=== PATIENT | male | born 1960 | race African-American/Black ===

== ENCOUNTER 2017-08-09 12:47 | Emergency (ER) | payer BC ==
[~2017-08-09] VITALS: Ht 198.1 cm; Wt 106.1 kg
[~2017-08-09 12:47] MED LIST: ASPIR-TRIN325 M1 PO; GLUCOPHAGE1000 MG PO; GLUCOPHAGE500 MG PO; Glucophage PO; LANTUS 3 M100 UNITS/ SC; LANTUS 3 M100 UNITS1 SC; MOBIC15 MG PO; NOHOMEMEDS
[2017-08-09 14:40] LABS: HEMATOCRIT 41.6 % (38.0-50.0); HEMOGLOBIN 13.6 G/DL (12.5-16.6); MCH 27.8 PG (29.0-34.0); MCHC 32.7 G/DL (30.0-36.0); MCV 85.1 FL (86-99); PLATELET COUNT 217 K/uL (156-360); RBC DIS.WIDTH-CV 13.6 % (11.8-14.6); RBC DIS.WIDTH-SD 42.5 % (39-53); RED BLOOD COUNT 4.89 M/uL (4.00-5.50); WHITE BLOOD COUNT 5.4 K/uL (4.1-10.2)
[2017-08-09 14:51] LABS: CHLORIDE 104 mEq/L (99-109); SODIUM 140 mEq/L (136-147)
[2017-08-09 14:52] LABS: GLUCOSE 122 mg/dL (70-99)
[2017-08-09 14:56] LABS: CREATININE 1.2 mg/dL (0.6-1.3); GFR ESTIMATE (CALCULATED) > 59 mL/min/ (58.99-99999)
[2017-08-09 14:57] LABS: UREA NITROGEN (BUN) 16 mg/dL (9-23)
[2017-08-09 14:59] LABS: TROP-I INTERPRETATION NEGATIVE; TROPONIN-I < 0.01 ng/mL (0.0-0.30)
[2017-08-09] MEDS ORDERED: FLEXERIL10 MG PO (15:37)
[2017-08-09] MEDS ORDERED: PREDNISONE50 MG PO (15:37)
[2017-08-09 15:49] VITALS: BP 129/92
== END 2017-08-09 15:50 | disposition home or self-care (01) ==
LOC: EME 12:47
DX: M75.52 Bursitis of left shoulder (principal); M25.512 Pain in left shoulder; E11.9 Type 2 diabetes mellitus without complications; Z79.84 Long term (current) use of oral hypoglycemic drugs; Z88.5 Allergy status to narcotic agent
CPT/HCPCS: 71046; 80048; 84484; 85027; 93005; 99281; 99283; J7512